=== PATIENT | female | born 1940 | race Hispanic/Latino ===

== ENCOUNTER 2017-09-25 12:50 | Outpatient (CLI) | payer MEDICARE ==
--- NOTE | 2017-09-29 11:16 | PET Report ---
PET/CT:09/25/17 12:50:00 CLINICAL: Colon cancer restaging. RADIOPHARMACEUTICAL: 14.09mCi F18-FDG. COMPARISON: 01/26/15 PET/CT TECHNIQUE- Following intravenous injection of F-18 FDG and an approximately 60 minute uptake period, CT and PET images from the mid skull to the upper thighs were acquired with the patient in the fasted state. No contrast was administered. The CT protocol used for this PET CT study is designed for attenuation correction and anatomic localization of PET abnormalities. This king maker CT is not desired to produce and cannot replace, [id number] diagnostic CT scans with specific imaging protocols for different body parts and indications. Plasma glucose at the time of this test: 125g/dl. The standardized uptake values (SUV) are normalized to patient body weight and indicate the highest activity concentration (SUV max) in a given disease site. FINDINGS: Brain--Physiologic FDG uptake in the visualized regions of the brain. Neck--Physiologic FDG uptake . Chest--Physiologic FDG uptake in mediastinal blood pool and myocardium. Lungs--No abnormal uptake. No pulmonary nodule or mass. However, a new large left pleural effusion and complete atelectasis of the left lower lobe. Small right pleural effusion. Pleura/pericardium--No abnormal uptake. Thoracic nodes--Several FDG avid mediastinal lymph nodes. A retrocaval pretracheal lymph node measures less than 1 cm with SUV 5.4 and a pretracheal 9 mm lymph node with SUV 5.1. A subcentimeter AP window lymph nodes with SUV 3.8. Hepatobiliary--Too numerous to count FDG avid hepatic lesions which are not well-seen on the CT portion of the exam. An upper right lobe lesion with HCV 9.9 and a right lower lobe lesion with SUV 11.6. Spleen--No abnormal uptake. Pancreas--No abnormal uptake. Adrenal Glands--No abnormal uptake. Kidneys/Ureters/Bladder--No abnormal uptake. Abdominopelvic Nodes--Several FDG avid left retroperitoneal lymph nodes. The most prominent measures 2.2 cm with SUV 6.5. Bowel/Peritoneum/Mesentery--No abnormal uptake. Pelvic organs--No abnormal uptake. Bones/Soft Tissues--A new FDG avid lesion involving the left iliac is muscle in the left iliac bone measures approximately 4 cm in diameter with SUV 6.0. Other findings: Anasarca with large-volume of ascites. IMPRESSION- 1. 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 2. 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 Mediastinal lymph nodes are more prominent with greater FDG uptake but the abdominal retroperitoneal lymph nodes show less FDG uptake. 3. A large left pleural effusion producing collapse of the left lower lobe but no suspicious pulmonary uptake.
== END 2017-09-25 12:51 | disposition home or self-care (01) ==
LOC: PET 12:50
PROVIDERS: ATTEND Internal Medicine Hematology & Oncology
DX: C78.7 Secondary malignant neoplasm of liver and intrahepatic bile duct (principal); C78.6 Secondary malignant neoplasm of retroperitoneum and peritoneum; C18.6 Malignant neoplasm of descending colon; E70.1 Other hyperphenylalaninemias; J90 Pleural effusion, not elsewhere classified; J98.11 Atelectasis; K76.89 Other specified diseases of liver; R18.8 Other ascites
CPT/HCPCS: 78815; 82962; A9552